=== PATIENT | female | born 1960 | race Caucasian/White ===

== ENCOUNTER 2021-09-15 09:24 | Outpatient (CLI) | payer OTHER | END 2021-09-15 09:25 | disposition home or self-care (01) | LOC: RAD 09:24 | PROVIDERS: ATTEND Family Medicine | DX: M54.50 Low back pain, unspecified (principal); M47.816 Spondylosis without myelopathy or radiculopathy, lumbar region | CPT/HCPCS: 72100 ==

== ENCOUNTER 2023-06-10 07:48 | Day surgery (SDC) | payer BC ==
[2023-06-08 13:21] VITALS: BMI 22.8
[2023-06-10] MEDS ORDERED: EPINEPHrine 1 MG/ML AMP ONE (10:28)
[2023-06-10] MEDS ORDERED: fentaNYL PF 100 MCG/2 ML SYRINGE ONE ×2 (10:32→11:11)
[2023-06-10] MEDS ORDERED: SUGAMMADEX SODIUM 200 MG/2 ML VIAL ONE (10:38)
[2023-06-10] MEDS ORDERED: Lidocaine 1% PF 5 ML VIAL ONE (10:47)
[2023-06-10] MEDS ORDERED: Dexamethasone 20 MG/5 ML VIAL ONE (10:47)
[2023-06-10] MEDS ORDERED: PROPOFOL 200 MG/20 ML VIAL ONE (10:47)
[2023-06-10] MEDS ORDERED: Rocuronium Bromide 10 MG/ML (10ML VIAL) ONE (10:47)
[2023-06-10] MEDS ORDERED: Ondansetron PF 4 MG/2 ML Vial ONE ×2 (10:47→11:36)
[2023-06-10] MEDS ORDERED: Labetalol HCl 100 MG/20 ML VIAL ONE (12:16)
== END 2023-06-10 13:55 | disposition home or self-care (01) ==
LOC: SDC 07:48
PROVIDERS: ATTEND Specialist
PROC: 0CBV8ZZ Excision of Left Vocal Cord, Via Natural or Artificial Opening Endoscopic (ICD-10-PCS; principal; 2023-06-10)
PROC: 0CBT8ZZ Excision of Right Vocal Cord, Via Natural or Artificial Opening Endoscopic (ICD-10-PCS; principal; 2023-06-10)
DX: J38.3 Other diseases of vocal cords (principal); J38.4 Edema of larynx; K21.9 Gastro-esophageal reflux disease without esophagitis; J33.9 Nasal polyp, unspecified; J38.2 Nodules of vocal cords; Z87.891 Personal history of nicotine dependence
CPT/HCPCS: 85014; 93005; 93010; J0171; J1100; J2405; J2704